=== PATIENT | female | born 1995 | race American Indian/Alaskan Native ===

== ENCOUNTER 2018-01-22 13:52 | Emergency (ER) | payer OTHER ==
[2018-01-22] MEDS ORDERED: TORADOL IM ONE (21:24)
[2018-01-22] MEDS ORDERED: FLEXERIL PO ONE (21:25)
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
[2018-01-22 21:45] VITALS: BP 141/94
== END 2018-01-22 22:04 | disposition home or self-care (01) ==
LOC: EDSEX → ED 13:52
DX: S16.1XXA Strain of muscle, fascia and tendon at neck level, initial encounter (principal); S39.012A Strain of muscle, fascia and tendon of lower back, initial encounter; M62.830 Muscle spasm of back; V49.49XA Driver injured in collision with other motor vehicles in traffic accident, initial encounter; Y93.89 Activity, other specified; Y92.89 Other specified places as the place of occurrence of the external cause; Y99.8 Other external cause status
CPT/HCPCS: 96372; 99282; J1885

== ENCOUNTER 2019-06-15 13:13 | Emergency (ER) | payer OTHER ==
[2019-06-15 13:26] VITALS: BP 122/76
--- NOTE | 2019-06-15 13:28 | Emergency Department Report ---
Chief Complaint: Skin/Abscess/Foreign Body Stated Complaint: BUMP ON LIP Time Seen by Provider: 06/15/19 13:27 - HPI History of Present Illness: SORE LEFT LOWER LIP ABC INTACT NO HX HSV NON ILL NON TOXIC NO FEVER AMBULATORY NO LIFE THREAT MSE TO PCP - Exam Vital Signs: Vital Signs 06/15/19 13:23 Temperature 98.6 F Pulse Rate 79 Respiratory 15 Rate Blood Pressure 122/76 O2 Sat by Pulse 99 Oximetry MSE screening note: Focused history and physical exam performed. Due to findings the following was ordered: ED Disposition for MSE Condition: Stable
== END 2019-06-15 13:30 | disposition left against medical advice (07) ==
LOC: ED 13:13
DX: K13.0 Diseases of lips (principal)
CPT/HCPCS: 99281

== ENCOUNTER 2019-08-05 10:57 | Emergency (ER) | payer OTHER ==
[2019-08-05 11:03] VITALS: BP 122/78
[2019-08-05 12:20] LABS: Basophils % (Auto) 0.6 % (0.0-1.8); Eosinophils # (Auto) 0.1 K/mm3 (0.0-0.4); Eosinophils % (Auto) 1.3 % (0.0-4.3); Hematocrit 46.9 % (30.3-42.9); Hemoglobin 16.1 gm/dl (10.1-14.3); Lymphocytes # (Auto) 1.5 K/mm3 (1.2-5.4); Lymphocytes % (Auto) 34.4 % (13.4-35.0); Mean Corpuscular HGB Conc 34 % (30-34); Mean Corpuscular Volume 86 fl (79-97); Monocytes # (Auto) 0.4 K/mm3 (0.0-0.8); Monocytes % (Auto) 8.1 % (0.0-7.3); Platelet Count 205 K/mm3 (140-440); Red Blood Count 5.44 M/mm3 (3.65-5.03); Red Cell Distribution Width 13.7 % (13.2-15.2)
[2019-08-05 12:39] LABS: Bilirubin,Urine NEG (Negative); Blood,Urine SM (Negative); Color,Urine Yellow (Yellow); Mucus,Urine FEW /HPF; Protein,Urine <15 mg/dL mg/dL (Negative); WBC,Urine < 1.0 /HPF (0.0-6.0)
[2019-08-05 12:41] LABS: HCG Qualitative,Urine Negative (Negative)
[2019-08-05 12:43] LABS: BUN/Creatinine Ratio 18; Blood Urea Nitrogen 14 mg/dL (7-17); Calcium 10.1 mg/dL (8.4-10.2); Hemolysis Index 14
[2019-08-05] MEDS ORDERED: traMADol 50 MG TAB PO ONE (12:46)
--- NOTE | 2019-08-05 13:34 | Emergency Department Report ---
ED Female HPI - General Chief complaint: Vaginal Bleeding Stated complaint: CRAMPING/BLOOD CLOT Time Seen by Provider: 08/05/19 12:26 Source: patient Mode of arrival: Ambulatory Limitations: No Limitations - History of Present Illness Initial comments: This is a 23-year-old healthy female who presents the ED complaining of vaginal bleeding that began on July 26, 2019. Patient states bleeding began light and has gotten moderately heavy since then. Patient states she is soaking the bowel 4-5 pads a day. Patient states that she was seen at her [facility] office on July 25, 2019 and added IUD taken out. Patient states the bleeding started the next day after that. Patient states that prior to IUD removal she had a normal cycle every month patient also states she been having some pelvic cramping with the bleeding. She denies fatigue, fever, headache, blurry vision, syncopal episode MD Complaint: vaginal bleeding -: days(s) (10) Severity scale (0 -10): 7 Quality: cramping, aching Are you Now?: No - Related Data Previous Rx's Medication Instructions Recorded Last Taken Type Cyclobenzaprine [Flexeril 10 MG 10 mg PO TID #15 tablet 01/22/18 Unknown Rx TAB] Naproxen [Naprosyn] 500 mg PO BID #20 tablet 08/05/19 Unknown Rx traMADoL [Ultram 50 MG tab] 50 mg PO Q6HR PRN #20 tablet 08/05/19 Unknown Rx Allergies Allergy/AdvReac Type Severity Reaction Status Date / Time No Known Allergies Allergy Unverified 01/22/18 14:00 ED Review of Systems ROS: Stated complaint: CRAMPING/BLOOD CLOT Other details as noted in HPI Comment: All other systems reviewed and negative ED Past Medical Hx - Past Medical History Previous Medical History?: No - Surgical History Past Surgical History?: Yes Additional Surgical History: x 1 - Social History Smoking Status: Never Smoker Substance Use Type: None - Medications Home Medications: Home Medications Medication Instructions Recorded Confirmed Last Taken Type Cyclobenzaprine [Flexeril 10 MG 10 mg PO TID #15 tablet 01/22/18 Unknown Rx TAB] Naproxen [Naprosyn] 500 mg PO BID #20 tablet 08/05/19 Unknown Rx traMADoL [Ultram 50 MG tab] 50 mg PO Q6HR PRN #20 tablet 08/05/19 Unknown Rx ED Physical Exam - General Limitations: No Limitations General appearance: alert, in no apparent distress - Head Head exam: Present: atraumatic, normocephalic - Eye Eye exam: Present: normal appearance - ENT ENT exam: Present: mucous membranes moist - Neck Neck exam: Present: normal inspection - Respiratory Respiratory exam: Present: normal lung sounds bilaterally. Absent: respiratory distress - Cardiovascular Cardiovascular Exam: Present: regular rate, normal rhythm. Absent: systolic murmur, diastolic murmur, rubs, gallop - GI/Abdominal GI/Abdominal exam: Present: soft, normal bowel sounds - Extremities Exam Extremities exam: Present: normal inspection - Back Exam Back exam: Present: normal inspection - Neurological Exam Neurological exam: Present: alert, oriented X3 - Psychiatric Psychiatric exam: Present: normal affect, normal mood - Skin Skin exam: Present: warm, dry, intact, normal color. Absent: rash ED Course Vital Signs 08/05/19 08/05/19 11:01 12:59 Respiratory 18 18 Rate Blood Pressure 122/78 ED Medical Decision Making - Lab Data Result diagrams: 08/05/19 11:47 08/05/19 11:47 Laboratory Last Values WBC 4.4 K/mm3 (4.5-11.0) L 08/05/19 11:47 RBC 5.44 M/mm3 (3.65-5.03) H 08/05/19 11:47 Hgb 16.1 gm/dl (10.1-14.3) H 08/05/19 11:47 Hct 46.9 % (30.3-42.9) H 08/05/19 11:47 MCV 86 fl (79-97) 08/05/19 11:47 MCH 30 pg (28-32) 08/05/19 11:47 MCHC 34 % (30-34) 08/05/19 11:47 RDW 13.7 % (13.2-15.2) 08/05/19 11:47 Plt Count 205 K/mm3 (140-440) 08/05/19 11:47 Lymph % (Auto) 34.4 % (13.4-35.0) 08/05/19 11:47 [place] % (Auto) 8.1 % (0.0-7.3) H 08/05/19 11:47 Eos % (Auto) 1.3 % (0.0-4.3) 08/05/19 11:47 Baso % (Auto) 0.6 % (0.0-1.8) 08/05/19 11:47 Lymph # 1.5 K/mm3 (1.2-5.4) 08/05/19 11:47 [place] # 0.4 K/mm3 (0.0-0.8) 08/05/19 11:47 Eos # 0.1 K/mm3 (0.0-0.4) 08/05/19 11:47 Baso # 0.0 K/mm3 (0.0-0.1) 08/05/19 11:47 Seg Neutrophils % 55.6 % (40.0-70.0) 08/05/19 11:47 Seg Neutrophils # 2.4 K/mm3 (1.8-7.7) 08/05/19 11:47 Sodium 139 mmol/L (137-145) 08/05/19 11:47 Potassium 4.3 mmol/L (3.6-5.0) 08/05/19 11:47 Chloride 101.5 mmol/L (98-107) 08/05/19 11:47 Carbon Dioxide 23 mmol/L (22-30) 08/05/19 11:47 Anion Gap 19 mmol/L 08/05/19 11:47 BUN 14 mg/dL (7-17) 08/05/19 11:47 Creatinine 0.8 mg/dL (0.7-1.2) 08/05/19 11:47 Estimated GFR > 60 ml/min 08/05/19 11:47 BUN/Creatinine Ratio 18 % 08/05/19 11:47 Glucose 102 mg/dL (65-100) H 08/05/19 11:47 Calcium 10.1 mg/dL (8.4-10.2) 08/05/19 11:47 Urine Color Yellow (Yellow) 08/05/19 12:16 Urine Turbidity Clear (Clear) 08/05/19 12:16 Urine pH 6.0 (5.0-7.0) 08/05/19 12:16 Ur Specific [place] 1.018 (1.003-1.030) 08/05/19 12:16 Urine Protein <15 mg/dl mg/dL (Negative) 08/05/19 12:16 Urine Glucose (UA) Neg mg/dL (Negative) 08/05/19 12:16 Urine Ketones Neg mg/dL (Negative) 08/05/19 12:16 Urine Blood Sm (Negative) 08/05/19 12:16 Urine Nitrite Neg (Negative) 08/05/19 12:16 Urine Bilirubin Neg (Negative) 08/05/19 12:16 Urine Urobilinogen 2.0 mg/dL (<2.0) 08/05/19 12:16 Ur Leukocyte Esterase Neg (Negative) 08/05/19 12:16 Urine WBC (Auto) < 1.0 /HPF (0.0-6.0) 08/05/19 12:16 Urine RBC (Auto) 1.0 /HPF (0.0-6.0) 08/05/19 12:16 U Epithel Cells (Auto) 3.0 /HPF (0-13.0) 08/05/19 12:16 Urine Mucus Few /HPF 08/05/19 12:16 Urine HCG, Qual Negative (Negative) 08/05/19 12:16 - Medical Decision Making 23-year-old female presents to ED with menorrhagia secondary to IUD removal ED course: Pt received ultra sound, CBC, urinalysis, test ordered All labs within normal limits, test negative Discussed with patient to follow-up with the [facility] in 2 to 3 days. Discussed with patient that vaginal bleeding with IUD removal is usually common. H&H mildly elevated and not depleted. I discussed all findings with patient. Vital signs normalized patient is in no acute distress. I discussed with the patient if follow-up with her [facility]. I discussed all labs and ultrasound findings with the patient. I discussed with the patient that he if bleeding worsens or new symptoms develop to return to ED immediately Critical care attestation.: If time is entered above; I have spent that time in minutes in the direct care of this critically ill patient, excluding procedure time. ED Disposition Clinical Impression: Menorrhagia, Vaginal bleeding between periods Disposition: - TO HOME OR SELFCARE Is pt being admited?: No Does the pt Need Aspirin: No Condition: Stable Instructions: Menorrhagia (ED) Additional Instructions: Make sure to follow up with the primary care physician as discussed. Take all your medications as you've been prescribed. If you have any worsening symptoms or develop new symptoms please return to ED immediately. Prescriptions: Naproxen [Naprosyn] 500 mg PO BID #20 tablet traMADoL [Ultram 50 MG tab] 50 mg PO Q6HR PRN #20 tablet PRN Reason: Pain Referrals: PRIMARY CARE,MD [Primary Care Provider] - 3-5 Days [facility] [Provider Group] - 3-5 Days [facility] [Outside] - 3-5 Days Forms: Accompanied Note, Work/School Release Form(ED) Time of Disposition: 13:44
== END 2019-08-05 13:55 | disposition home or self-care (01) ==
LOC: ED 10:57
DX: N92.0 Excessive and frequent menstruation with regular cycle (principal); N93.9 Abnormal uterine and vaginal bleeding, unspecified; Z79.899 Other long term (current) drug therapy; Z98.890 Other specified postprocedural states
CPT/HCPCS: 36415; 80048; 81001; 81025; 85025

== ENCOUNTER 2019-09-30 10:38 | Emergency (ER) | payer OTHER ==
[2019-09-30 11:14] LABS: Bacteria,Urine 1+ /HPF (Negative); Bilirubin,Urine NEG (Negative); Blood,Urine SM (Negative); Color,Urine Yellow (Yellow); HCG Qualitative,Urine Negative (Negative); Mucus,Urine 1+ /HPF; Protein,Urine <15 mg/dL mg/dL (Negative); Urobilinogen,Urine < 2.0 mg/dL (<2.0)
[2019-09-30] MEDS ORDERED: SODIUM CHLORIDE 0.9% 1000 ML 1,000 ML IV ONE (11:36)
--- NOTE | 2019-09-30 11:37 | Emergency Department Report ---
ED Abdominal Pain HPI - General Chief Complaint: Abdominal Pain Stated Complaint: STOMACH PAIN, VOMITTING Source: patient Mode of arrival: Ambulatory Limitations: No Limitations - History of Present Illness Initial Comments: 24-year-old -[place] female reports that she has had episodes of nausea after eating food a week ago. Patient reports now she has been having abdominal pain that is gotten worse. Patient states that she went to urgent care today and was told to follow-up in the ER for abdominal pain. Patient reports her last menstrual period was 09/10/2019. Patient denies any hematuria, hematochezia,or hematemesis. Patient denies any diarrhea or constipation. Patient denies any dysuria or vaginal discharge. Patient states that the pain is at the epigastric area and the left side. Patient denies any trauma no shortness of breath or chest pain. Patient denies any fever or chills. MD Complaint: abdominal pain Onset/Timin -: days(s) (2 days of progressively getting worse), week(s) Location: epigastric Radiation: LUQ Severity scale (0 -10): 7 Quality: cramping Consistency: intermittent Improves With: nothing Worsens With: eating Associated Symptoms: nausea, vomiting. denies: diarrhea, fever, dysuria, hematemesis, hematochezia, hematuria - Related Data LMP Date: 09/10/19 Previous Rx's Medication Instructions Recorded Last Taken Type Cyclobenzaprine [Flexeril 10 MG 10 mg PO TID #15 tablet 01/22/18 Unknown Rx TAB] Naproxen [Naprosyn] 500 mg PO BID #20 tablet 08/05/19 Unknown Rx traMADoL [Ultram 50 MG tab] 50 mg PO Q6HR PRN #20 tablet 08/05/19 Unknown Rx Allergies Allergy/AdvReac Type Severity Reaction Status Date / Time No Known Allergies Allergy Unverified 01/22/18 14:00 ED Review of Systems ROS: Stated complaint: STOMACH PAIN, VOMITTING Other details as noted in HPI Comment: All other systems reviewed and negative ED Past Medical Hx - Past Medical History Previous Medical History?: No - Surgical History Past Surgical History?: Yes Additional Surgical History: x 1 - Social History Smoking Status: Never Smoker Substance Use Type: Alcohol - Medications Home Medications: Home Medications Medication Instructions Recorded Confirmed Last Taken Type Cyclobenzaprine [Flexeril 10 MG 10 mg PO TID #15 tablet 01/22/18 Unknown Rx TAB] Naproxen [Naprosyn] 500 mg PO BID #20 tablet 08/05/19 Unknown Rx traMADoL [Ultram 50 MG tab] 50 mg PO Q6HR PRN #20 tablet 08/05/19 Unknown Rx ED Physical Exam - General Limitations: No Limitations General appearance: alert, in no apparent distress - Head Head exam: Present: atraumatic, normocephalic - Eye Eye exam: Present: normal appearance - ENT ENT exam: Present: mucous membranes moist - Neck Neck exam: Present: normal inspection, full ROM - Respiratory Respiratory exam: Present: normal lung sounds bilaterally - Cardiovascular Cardiovascular Exam: Present: tachycardia - GI/Abdominal GI/Abdominal exam: Present: soft, tenderness (Epigastric), guarding (Epigastric), normal bowel sounds. Absent: distended - Back Exam Back exam: Present: normal inspection - Neurological Exam Neurological exam: Present: alert, oriented X3, normal gait - Psychiatric Psychiatric exam: Present: normal affect, normal mood - Skin Skin exam: Present: warm, dry, intact, normal color. Absent: rash ED Course Vital Signs 09/30/19 10:44 Temperature 98.3 F Pulse Rate 116 H Respiratory 20 Rate Blood Pressure 132/85 O2 Sat by Pulse 99 Oximetry ED Medical Decision Making - Lab Data Result diagrams: 09/30/19 11:24 09/30/19 11:24 - Radiology Data Radiology results: report reviewed Ordering Physician: CLIVE LONGORIA Date of Service: 09/30/19 Procedure(s): CT abdomen pelvis w con Accession Number(s): [id number] cc: CLIVE LONGORIA CT abdomen pelvis w con INDICATION / CLINICAL INFORMATION: MAIN: Epigastric tenderness nausea and vomiting x1wk [id number] 100ml. TECHNIQUE: All CT scans at this location are performed using CT dose reduction for ALARA by means of automated exposure control. COMPARISON: None available. FINDINGS: Lower lungs are clear. ABDOMEN: The gallbladder, liver, spleen, pancreas, kidneys and adrenal glands are normal. No retroperitoneal adenopathy. No small bowel distention. Imaging there are scattered small mesenteric lymph nodes without evidence of mesenteric edema. Pelvis: The appendix is normal. No fluid collections or inflammatory changes are seen in the pelvis. A contraceptive device is in place. No osseous abnormality. IMPRESSION: 1. Mild nonspecific mesenteric adenopathy without other abdominal or pelvic abnormality. Signer Name: Ino Allred MD Signed: 09/30/2019 1:41 PM Workstation Name: [id number] Transcribed By: MARI Dictated By: Ino Allred MD Electronically Authenticated By: Ino Allred MD Signed Date/Time: 09/30/19 1341 DD/ 1339 TD/TT: - Medical Decision Making 24-year-old -[place] female reports that she has had episodes of nausea after eating food a week ago. Patient reports now she has been having abdominal pain that is gotten worse. Patient states that she went to urgent care today and was told to follow-up in the ER for abdominal pain. Patient reports her last menstrual period was 09/10/2019. Patient denies any hematuria, hematochezia,or hematemesis. Patient denies any diarrhea or constipation. Patient denies any dysuria or vaginal discharge. Patient states that the pain is at the epigastric area and the left side. Patient denies any trauma no shortness of breath or chest pain. Patient denies any fever or chills. Review labs which are stable no urinary tract infection no elevated white count. CT shows moderate nonspecific lymphadenopathy. Discussed with Dr. Blanchard he recommends patient to follow-up with [facility]. Critical care attestation.: If time is entered above; I have spent that time in minutes in the direct care of this critically ill patient, excluding procedure time. ED Disposition Clinical Impression: Nonspecific abdominal pain Disposition: DC-01 TO HOME OR SELFCARE Is pt being admited?: No Does the pt Need Aspirin: No Condition: Stable Instructions: Abdominal Pain (ED) Additional Instructions: Labs are negative for any acute findings CT scan shows some lymph nodes that are mildly enlarged. I highly recommend for you to follow-up with a dealer card room I have listed 1 below for your convenience. You can take Tylenol or ibuprofen as needed for pain management. Referrals: PRIMARY CARE, [Primary Care Provider] - 3-5 Days [facility] [Provider Group] - 3-5 Days Forms: Work/School Release Form(ED)
[2019-09-30 11:46] LABS: Basophils % (Auto) 0.3 % (0.0-1.8); Eosinophils % (Auto) 0.2 % (0.0-4.3); Hematocrit 43.8 % (30.3-42.9); Hemoglobin 14.9 gm/dl (10.1-14.3); Lymphocytes # (Auto) 1.2 K/mm3 (1.2-5.4); Lymphocytes % (Auto) 19.2 % (13.4-35.0); Mean Corpuscular HGB Conc 34 % (30-34); Mean Corpuscular Volume 88 fl (79-97); Monocytes # (Auto) 0.3 K/mm3 (0.0-0.8); Monocytes % (Auto) 4.5 % (0.0-7.3); Platelet Count 189 K/mm3 (140-440); Red Cell Distribution Width 13.6 % (13.2-15.2)
[2019-09-30 12:02] LABS: Alanine Aminotransferase 15 units/L (7-56); Albumin 4.6 g/dL (3.9-5); BUN/Creatinine Ratio 23; Blood Urea Nitrogen 16 mg/dL (7-17); Calcium 9.6 mg/dL (8.4-10.2); Hemolysis Index 4
--- NOTE | 2019-09-30 13:45 | Cat Scan Report ---
CT abdomen pelvis w con INDICATION / CLINICAL INFORMATION: MAIN: Epigastric tenderness nausea and vomiting x1wk [id number] 100ml. TECHNIQUE: All CT scans at this location are performed using CT dose reduction for ALARA by means of automated e xposure control. COMPARISON: None available. FINDINGS: Lower lungs are clear. ABDOMEN: The gallbladder, liver, spleen, pancreas, kidneys and adrenal glands are normal. No retroperitoneal adenopathy. No small bowel distention. Imaging there are scattered small mesenteric lymph nodes without evidence of mesenteric edema. Pelvis: The appendix is normal. No fluid collections or inflammatory changes are seen in the pelvis. A contraceptive device is in place. No osseous abnormality. IMPRESSION: 1. Mild nonspecific mesenteric adenopathy without other abdominal or pelvic abnormality. Signer Name: Ino Allred MD Signed: 09/30/2019 1:41 PM Workstation Name: [id number]
[2019-09-30 14:36] VITALS: BP 130/86
== END 2019-09-30 14:46 | disposition home or self-care (01) ==
LOC: ED 10:38
DX: R10.13 Epigastric pain (principal); R11.2 Nausea with vomiting, unspecified; Z98.890 Other specified postprocedural states; Z79.899 Other long term (current) drug therapy
CPT/HCPCS: 36415; 74177; 80053; 81001; 81025; 82150; 83690; 85025; 96360; 99284; J7030; Q9967

== ENCOUNTER 2020-01-28 14:53 | Emergency (ER) | payer OTHER ==
--- NOTE | 2020-01-28 19:25 | Emergency Department Report ---
Blank Doc - Documentation Documentation: 24-year-old female that presents with bdoy aches, sore throat, cough, and chest pains. This initial assessment/diagnostic orders/clinical plan/treatment(s) is/are subject to change based on patient's health status, clinical progression and re- assessment by fellow clinical providers in the ED. Further treatment and workup at subsequent clinical providers discretion. Patient/guardians urged not to elope from the ED as their condition may be serious if not clinically assessed and managed. Initial orders include: 1- Patient sent to [facility] for further evaluation and treatment 2- CXR 3- EKG
[2020-01-28 19:28] VITALS: BP 127/82
--- NOTE | 2020-01-28 20:20 | XRay Report ---
CHEST 2 VIEWS INDICATION / CLINICAL INFORMATION: cough. COMPARISON: None available. FINDINGS: SUPPORT DEVICES: None. HEART / MEDIASTINUM: No significant abnormality. LUNGS / PLEURA: No significant pulmonary or pleural abnormality. No pneumothorax. ADDITIONAL FINDINGS: No significant additional findings. IMPRESSION: 1. No acute findings. Signer Name: Dutch Rice MD Signed: 01/28/2020 8:15 PM Workstation Name: [id number]
--- NOTE | 2020-01-28 21:35 | Emergency Department Report ---
ED General Adult HPI - General Chief complaint: Chest Pain Stated complaint: CP/SORE THROAT/STUFFY NOSE PUI?: No Time Seen by Provider: 01/28/20 19:24 Source: patient Mode of arrival: Ambulatory Limitations: No Limitations - History of Present Illness Initial comments: This is a healthy 24-year-old female without significant past medical history who presents with several days of chest pain cough shortness of breath body aches sore throat nasal congestion. She has subjective fever with chills. She suspects that she contacted possible COVID-19 while travel on vacation to [facility]. She has been sick for at least 6 days. She requires documentation to be excused from work. Nondescript chest fullness. Mild shortness of breath. -: Gradual, days(s) (6 days) Location: chest Quality: dull Consistency: constant Improves with: none Worsens with: none Associated Symptoms: cough, malaise, shortness of breath, other (Nasal congestion sore throat) Treatments Prior to Arrival: none - Related Data Previous Rx's Medication Instructions Recorded Last Taken Type Cyclobenzaprine [Flexeril 10 MG 10 mg PO TID #15 tablet 01/22/18 Unknown Rx TAB] Naproxen [Naprosyn] 500 mg PO BID #20 tablet 08/05/19 Unknown Rx traMADoL [Ultram 50 MG tab] 50 mg PO Q6HR PRN #20 tablet 08/05/19 Unknown Rx Allergies Allergy/AdvReac Type Severity Reaction Status Date / Time No Known Allergies Allergy Unverified 01/22/18 14:00 ED Review of Systems ROS: Stated complaint: CP/SORE THROAT/STUFFY NOSE Other details as noted in HPI Comment: All other systems reviewed and negative Constitutional: chills, fever, malaise ENT: throat pain, congestion Respiratory: cough, shortness of breath Cardiovascular: chest pain Musculoskeletal: myalgia ED Past Medical Hx - Past Medical History Previous Medical History?: No - Surgical History Past Surgical History?: Yes Additional Surgical History: x 1 - Social History Smoking Status: Never Smoker Substance Use Type: None - Medications Home Medications: Home Medications Medication Instructions Recorded Confirmed Last Taken Type Cyclobenzaprine [Flexeril 10 MG 10 mg PO TID #15 tablet 01/22/18 Unknown Rx TAB] Naproxen [Naprosyn] 500 mg PO BID #20 tablet 08/05/19 Unknown Rx traMADoL [Ultram 50 MG tab] 50 mg PO Q6HR PRN #20 tablet 08/05/19 Unknown Rx ED Physical Exam - General Limitations: No Limitations General appearance: alert, in no apparent distress - Head Head exam: Present: atraumatic, normocephalic - Eye Eye exam: Present: normal appearance - ENT ENT exam: Present: mucous membranes moist - Neck Neck exam: Present: normal inspection, full ROM - Respiratory Respiratory exam: Present: normal lung sounds bilaterally. Absent: respiratory distress, wheezes, rales, rhonchi - Cardiovascular Cardiovascular Exam: Present: regular rate, normal rhythm, normal heart sounds. Absent: systolic murmur, diastolic murmur, rubs, gallop - GI/Abdominal GI/Abdominal exam: Present: soft, normal bowel sounds. Absent: distended, tenderness, guarding, rebound - Extremities Exam Extremities exam: Present: normal inspection - Neurological Exam Neurological exam: Present: alert, oriented X3 - Psychiatric Psychiatric exam: Present: normal affect, normal mood - Skin Skin exam: Present: warm, dry, intact, normal color. Absent: rash ED Course Vital Signs 01/28/20 19:25 Temperature 97.9 F Pulse Rate 100 H Respiratory 18 Rate Blood Pressure 127/82 O2 Sat by Pulse 100 Oximetry ED Medical Decision Making - EKG Data -: EKG Interpreted by De EKG shows normal: sinus rhythm, axis, intervals, QRS complexes, ST-T waves Rate: normal - EKG Data Interpretation: normal EKG 01/28/20 21:33 EKG obtained by tx EKG obtained 1528 Insert EKG - Radiology Data Radiology results: report reviewed Chest radiograph: No acute findings - Medical Decision Making With constellation of symptoms, I suspect COVID 19 infection. EKG checks x-ray unremarkable. Patient understands that she should self quarantine or obtain negative COVID-19 testing. Critical care attestation.: If time is entered above; I have spent that time in minutes in the direct care of this critically ill patient, excluding procedure time. ED Disposition Clinical Impression: Suspected 2019 novel coronavirus infection Disposition: DC-01 TO HOME OR SELFCARE Is pt being admited?: No Does the pt Need Aspirin: No Condition: Stable Instructions: COVID-19 Forms: Work/School Release Form(ED)
== END 2020-01-28 21:45 | disposition home or self-care (01) ==
LOC: ED 14:53
DX: R07.89 Other chest pain (principal); Z20.828 Contact with and (suspected) exposure to other viral communicable diseases; R05 Cough; R06.02 Shortness of breath; J02.9 Acute pharyngitis, unspecified; R50.9 Fever, unspecified; R09.81 Nasal congestion; R53.81 Other malaise; Z98.890 Other specified postprocedural states; Z79.899 Other long term (current) drug therapy
CPT/HCPCS: 71046; 93005

== ENCOUNTER 2020-04-17 14:20 | Emergency (ER) | payer OTHER ==
[2020-04-17 15:30] LABS: Basophils % (Auto) 0.1 % (0.0-1.8); Eosinophils % (Auto) 0.7 % (0.0-4.3); Hematocrit 42.4 % (30.3-42.9); Hemoglobin 14.8 gm/dl (10.1-14.3); Lymphocytes # (Auto) 1.6 K/mm3 (1.2-5.4); Lymphocytes % (Auto) 27.6 % (13.4-35.0); Mean Corpuscular HGB Conc 35 % (30-34); Mean Corpuscular Volume 85 fl (79-97); Monocytes # (Auto) 0.4 K/mm3 (0.0-0.8); Platelet Count 242 K/mm3 (140-440); Red Blood Count 4.98 M/mm3 (3.65-5.03); Red Cell Distribution Width 13.2 % (13.2-15.2)
[2020-04-17 16:34] VITALS: BP 139/76
--- NOTE | 2020-04-17 16:36 | Emergency Department Report ---
Blank Doc - Documentation Documentation: 24-year-old female possibly 6 weeks presents emerged department compl aining of vaginal bleeding for the last 2 days started spotting was very lightly on yesterday and and progressively worsened today. She is under the care of [facility] and presents to the ED to determine her current status. Plan ultrasound This initial assessment/diagnostic orders/clinical plan/treatment(s) is/are subject to change based on patients health status, clinical progression and re- assessment by fellow clinical providers in the ED. Further treatment and workup at subsequent clinical providers discretion. Patient/guardian urged not to elope from the ED as their condition may be serious if not clinically assessed and managed. Initial orders include:
[2020-04-17] MEDS ORDERED: ACETAMINOPHEN 500 MG TAB PO ONE (20:19)
[2020-04-17] MEDS ORDERED: METOCLOPRAMIDE 10 MG TAB PO ONE (20:19)
[2020-04-17 21:08] LABS: Bilirubin,Urine NEG (Negative); Blood,Urine LG (Negative); Color,Urine Yellow (Yellow); Mucus,Urine 1+ /HPF; Urobilinogen,Urine < 2.0 mg/dL (<2.0)
[2020-04-17] MEDS ORDERED: cephALEXin 500 MG CAP PO ONE (21:12)
[2020-04-17 21:17] LABS: Alanine Aminotransferase 15 units/L (7-56); Albumin 4.3 g/dL (3.9-5); Blood Urea Nitrogen 10 mg/dL (7-17); Calcium 9.6 mg/dL (8.4-10.2); Hemolysis Index 21
[2020-04-17 21:20] LABS: BUN/Creatinine Ratio 14
--- NOTE | 2020-04-17 22:32 | Ultrasound Report ---
ULTRASOUND OBSTETRIC INDICATION / CLINICAL INFORMATION: vagina bleeding and . Clinical Gestational Age (GA): 6.5 weeks.days TECHNIQUE: Transabdominal. COMPARISON: None available. FINDINGS: GESTATIONAL SAC: Well-defined oval shape and intrauterine in location. The gestational sac measures 3 .8 mm, corresponding to a gestational age of 5 weeks, 1 day. YOLK SAC: Not visualized. EMBRYO/FETUS: Not visualized. UTERUS: Uterus measures 9.1 x 4.0 x 5.1 cm and is normal in echogenicity. ADNEXA: The right ovary measures 2.8 x 2.4 x 2.7 cm and is normal in echogenicity with normal Doppler flow. The left ovary is not visualized. FREE FLUID: None. ADDITIONAL FINDINGS: None. IMPRESSION: 1. Intrauterine gestational sac is identified, corresponding to a gestational age of 5 weeks, 1 day. No pole was seen, which can be seen with early normal gestation. Continued obstetric follow-up is recommended. Signer Name: Prosper Mcmanus MD Signed: 04/17/2020 10:27 PM Workstation Name: [id number]
--- NOTE | 2020-04-17 23:09 | Emergency Department Report ---
ED Female HPI - General Chief complaint: Vaginal Bleeding Stated complaint: , ABD PAIN Time Seen by Provider: 04/17/20 14:59 Source: patient Mode of arrival: Ambulatory Limitations: No Limitations - History of Present Illness Initial comments: Patient is a A0 24-year-old -[place]ian female who is approximately 6 weeks gestation who presents to the ED with complaint of acute onset persistent suprapubic pain that radiates to the lower back and vaginal bleeding for the last 2 days worse in the last 12 hours. Patient states that the vaginal bleeding was initially mild and spotting but progressively became heavier especially in the last 12 hours. Patient denies fever, chills, nausea and vomiting, diarrhea, dysuria, vaginal discharge, dizziness, syncope, chest pain or shortness of breath, headache, cough, sore throat, traumatic injury or heavy lifting. MD Complaint: vaginal bleeding, pelvic pain (suprapubic) -: Sudden, days(s) (2) Location: suprapubic, other (vagina) Radiation: non-radiating Severity: moderate Severity scale (0 -10): 5 Quality: cramping, sharp Consistency: constant Improves with: none Worsens with: none Are you Now?: Yes (6 weeks gestation) Associated Symptoms: denies other symptoms, vaginal bleeding, abdominal pain (suprapubic), loss of appetite. denies: vaginal discharge, nausea/vomiting, fever/chills, headaches, dysuria, hematuria, rash, shortness of breath, syncope, weakness - Related Data Sexually active: Yes : 2 Para: 1 A: 0 Previous Rx's Medication Instructions Recorded Last Taken Type Cyclobenzaprine [Flexeril 10 MG 10 mg PO TID #15 tablet 01/22/18 Unknown Rx TAB] Naproxen [Naprosyn] 500 mg PO BID #20 tablet 08/05/19 Unknown Rx traMADoL [Ultram 50 MG tab] 50 mg PO Q6HR PRN #20 tablet 08/05/19 Unknown Rx Acetaminophen [Tylenol] 500 mg PO Q6HR PRN #30 tablet 04/17/20 Unknown Rx Promethazine [Phenergan] 25 mg PO Q6HR PRN #30 tab 04/17/20 Unknown Rx cephALEXin [Keflex] 500 mg PO Q8HR #30 cap 04/17/20 Unknown Rx Allergies Allergy/AdvReac Type Severity Reaction Status Date / Time No Known Allergies Allergy Unverified 01/22/18 14:00 ED Review of Systems ROS: Stated complaint: , ABD PAIN Other details as noted in HPI Constitutional: denies: chills, fever Eyes: denies: eye pain, eye discharge, vision change ENT: denies: ear pain, throat pain Respiratory: denies: cough, shortness of breath, wheezing Cardiovascular: denies: chest pain, palpitations Endocrine: no symptoms reported Gastrointestinal: abdominal pain, nausea. denies: diarrhea Genitourinary: frequency, abnormal menses (vaginal bleeding). denies: urgency, dysuria, discharge Musculoskeletal: denies: back pain, joint swelling, arthralgia Skin: denies: rash, lesions Neurological: denies: headache, weakness, paresthesias Psychiatric: denies: anxiety, depression Hematological/Lymphatic: denies: easy bleeding, easy bruising ED Past Medical Hx - Past Medical History Previous Medical History?: No - Surgical History Past Surgical History?: Yes Additional Surgical History: x 1 - Social History Smoking Status: Never Smoker Substance Use Type: None - Medications Home Medications: Home Medications Medication Instructions Recorded Confirmed Last Taken Type Cyclobenzaprine [Flexeril 10 MG 10 mg PO TID #15 tablet 01/22/18 Unknown Rx TAB] Naproxen [Naprosyn] 500 mg PO BID #20 tablet 08/05/19 Unknown Rx traMADoL [Ultram 50 MG tab] 50 mg PO Q6HR PRN #20 tablet 08/05/19 Unknown Rx Acetaminophen [Tylenol] 500 mg PO Q6HR PRN #30 tablet 04/17/20 Unknown Rx Promethazine [Phenergan] 25 mg PO Q6HR PRN #30 tab 04/17/20 Unknown Rx cephALEXin [Keflex] 500 mg PO Q8HR #30 cap 04/17/20 Unknown Rx ED Physical Exam - General Limitations: No Limitations General appearance: alert, in no apparent distress - Head Head exam: Present: atraumatic, normocephalic, normal inspection - Eye Eye exam: Present: normal appearance, PERRL, EOMI Pupils: Present: normal accommodation - ENT ENT exam: Present: normal exam, normal orophraynx, mucous membranes moist, TM's normal bilaterally, normal external ear exam - Neck Neck exam: Present: normal inspection, full ROM - Respiratory Respiratory exam: Present: normal lung sounds bilaterally. Absent: respiratory distress, wheezes, rales, rhonchi, chest wall tenderness, accessory muscle use - Cardiovascular Cardiovascular Exam: Present: regular rate, normal rhythm, normal heart sounds. Absent: systolic murmur, diastolic murmur, rubs, gallop - GI/Abdominal GI/Abdominal exam: Present: soft, tenderness (Palpable mild suprapubic tenderness), normal bowel sounds. Absent: guarding, rebound, hyperactive bowel sounds, hypoactive bowel sounds, organomegaly, mass, bruit, pulsatile mass - Bi-manual exam: Present: other (Pelvic exam deferred) - Extremities Exam Extremities exam: Present: normal inspection, full ROM, normal capillary refill - Back Exam Back exam: Present: normal inspection, full ROM. Absent: tenderness, CVA tenderness (R), CVA tenderness (L), muscle spasm, paraspinal tenderness, vertebral tenderness - Neurological Exam Neurological exam: Present: alert, oriented X3, CN II-XII intact - Psychiatric Psychiatric exam: Present: normal affect, normal mood - Skin Skin exam: Present: warm, dry, intact, normal color. Absent: rash ED Course Vital Signs 04/17/20 16:30 Temperature 98.2 F Pulse Rate 97 H Respiratory 18 Rate Blood Pressure 139/76 O2 Sat by Pulse 96 Oximetry ED Medical Decision Making - Lab Data Result diagrams: 04/17/20 15:16 04/17/20 20:11 - Radiology Data Radiology results: report reviewed, image reviewed Findings [address] [address] Ultrasound Report Signed Patient: LEE HANNA MR#: [id number] : 1995 Acct:[id number] Age/Sex: 24 / F ADM Date: 04/17/20 Loc: ED Attending Dr: Ordering Physician: CLIVE WU Date of Service: 04/17/20 Procedure(s): US OB <= 14 weeks fetus Accession Number(s): [id number] cc: CLIVE WU ULTRASOUND OBSTETRIC INDICATION / CLINICAL INFORMATION: vagina bleeding and . Clinical Gestational Age (GA): 6.5 weeks.days TECHNIQUE: Transabdominal. COMPARISON: None available. FINDINGS: GESTATIONAL SAC: Well-defined oval shape and intrauterine in location. The gestational sac measures 3.8 mm, corresponding to a gestational age of 5 weeks, 1 day. YOLK SAC: Not visualized. EMBRYO/FETUS: Not visualized. UTERUS: Uterus measures 9.1 x 4.0 x 5.1 cm and is normal in echogenicity. ADNEXA: The right ovary measures 2.8 x 2.4 x 2.7 cm and is normal in echogenicity with normal Doppler flow. The left ovary is not visualized. FREE FLUID: None. ADDITIONAL FINDINGS: None. IMPRESSION: 1. Intrauterine gestational sac is identified, corresponding to a gestational age of 5 weeks, 1 day. No pole was seen, which can be seen with early normal gestation. Continued obstetric follow-up is recommended. Signer Name: Shadia Mcmanus MD Signed: 04/17/2020 10:27 PM Workstation Name: [id number] Transcribed By: Dictated By: SHADIA MCMANUS Electronically Authenticated By: SHADIA MCMANUS Signed Date/Time: 04/17/202226 DD/ 23 TD/TT: - Medical Decision Making This is a A0 24-year-old -[place]ian female who is approximately 6 weeks gestation who presents to the ED with complaint of acute onset persistent suprapubic pain that radiates to the lower back and vaginal bleeding for the last 2 days worse in the last 12 hours. Patient states that the vaginal bleeding was initially mild and spotting but progressively became heavier especially in the last 12 hours. In the ED, patient is alert and oriented x3 and is not in distress. Patient was treated for pain in the ED and also treated with antiemetics. Lab test results were reviewed and showed hCG quant of 378.1 and urinalysis showed significant urinary tract infection. Transvaginal ultrasound showed intrauterine gestational sac is identified, corresponding to a gestational age of 5 weeks, 1 day. No pole was seen, which can be seen with early normal gestation. Continued obstetric follow-up is recommended. On reevaluation, patient's pain is well controlled medications. Patient will discharge home on antibiotics and advised to follow-up with her [facility] physician in 2 to 3 days for reevaluation. Patient was also advised return to the ED immediately if symptoms get worse. Patient was advised to return to the ED for serial hCG quant studies repeat to ascertain the viability of the . - Differential Diagnosis Threatened miscarriage; UTI; subchorionic bleed; ovarian cyst; Critical care attestation.: If time is entered above; I have spent that time in minutes in the direct care of this critically ill patient, excluding procedure time. ED Disposition Clinical Impression: Threatened miscarriage, Abdominal pain during in first trimester, Acute urinary tract infection Disposition: TO HOME OR SELFCARE Is pt being admited?: No Does the pt Need Aspirin: No Condition: Stable Instructions: Threatened Miscarriage, [id number], Abdominal Pain, Adult, [id number], Urinary Tract Infection, Adult, [id number], Vaginal Bleeding During , First Trimester, [id number] Additional Instructions: Lab test results were reviewed and showed no acute abnormalities. Transvaginal ultrasound showed single intrauterine corresponding to 5 weeks and 1 day but there is no pole likely due to early as characterized by the hCG quant of 378.1. Therefore maintain a complete pelvic rest, take antibiotic for UTI and Tylenol as needed for pain. Return to the ED or or to your [facility] physician within 48 hours for serial hCG quant repeat test to ascertain the viability of the . Otherwise return to the ED immediately if symptoms get worse. Prescriptions: Acetaminophen [Tylenol] 500 mg PO Q6HR PRN #30 tablet PRN Reason: Pain , Severe (7-10) cephALEXin [Keflex] 500 mg PO Q8HR #30 cap Promethazine [Phenergan] 25 mg PO Q6HR PRN #30 tab PRN Reason: Nausea Referrals: QUINCY GREENE MD [Staff Physician] - 3-5 Days Time of Disposition: 23:13 Print Language: ANGOLAN
== END 2020-04-17 23:44 | disposition home or self-care (01) ==
LOC: ED 14:20
DX: O20.0 Threatened abortion (principal); O23.41 Unspecified infection of urinary tract in pregnancy, first trimester; O26.891 Other specified pregnancy related conditions, first trimester; R10.2 Pelvic and perineal pain; Z3A.01 Less than 8 weeks gestation of pregnancy; Z98.890 Other specified postprocedural states; Z79.899 Other long term (current) drug therapy
CPT/HCPCS: 36415; 76801; 80053; 81001; 84702; 85025; 86900; 86901; 87086

== ENCOUNTER 2020-06-23 17:25 | Emergency (ER) | payer OTHER ==
[2020-06-23 17:36] VITALS: BP 149/88
--- NOTE | 2020-06-23 19:59 | Emergency Department Report ---
ED Dizziness HPI - General Chief Complaint: Nausea/Vomiting/Diarrhea Stated Complaint: PASS OUT/LIGHT HEADED Time Seen by Provider: 06/23/20 19:17 Source: patient Mode of arrival: Ambulatory Limitations: No Limitations - History of Present Illness Initial Comments: This is a 24-year-old female nontoxic, well nourished in appearance, no acute signs of distress presents to the ED with c/o of dizziness. Patient stated that she has vaginal bleeding x 3 days and when she went to work today started to have nausea and dizziness with feeling that she may pass out. Patient stated since then she has been drinking a lot of water and feels much better with some lightheadness now. Patient denies syncope. Patient denies any headache or head trauma. Patient denies any numbness, tingling, headache, stiff neck, chest pain, shortness of breathe, numbness or tingling. Denies any visual changes or blurry vision. Denies any drug allergies. MD Complaint: lightheadedness -: This morning Timing: gradual onset Description: lightheadedness History of Same: No History of Trauma: No Severity: mild Improves With: remaining still Worsens With: position Associated Symptoms: denies other symptoms. denies: ataxia, chest pain, confusion, cough, diaphoresis, fever/chills, loss of appetite, malaise, rash, seizure, shortness of breath, syncope, weakness - Related Data Previous Rx's Medication Instructions Recorded Last Taken Type Cyclobenzaprine [Flexeril 10 MG 10 mg PO TID #15 tablet 01/22/18 Unknown Rx TAB] Naproxen [Naprosyn] 500 mg PO BID #20 tablet 08/05/19 Unknown Rx traMADoL [Ultram 50 MG tab] 50 mg PO Q6HR PRN #20 tablet 08/05/19 Unknown Rx Acetaminophen [Tylenol] 500 mg PO Q6HR PRN #30 tablet 04/17/20 Unknown Rx Promethazine [Phenergan] 25 mg PO Q6HR PRN #30 tab 04/17/20 Unknown Rx cephALEXin [Keflex] 500 mg PO Q8HR #30 cap 04/17/20 Unknown Rx Allergies Allergy/AdvReac Type Severity Reaction Status Date / Time No Known Allergies Allergy Unverified 01/22/18 14:00 ED Review of Systems ROS: Stated complaint: PASS OUT/LIGHT HEADED Other details as noted in HPI Comment: All other systems reviewed and negative Constitutional: denies: chills, fever Eyes: denies: eye pain, eye discharge, vision change ENT: denies: ear pain, throat pain Respiratory: denies: cough, shortness of breath, wheezing Cardiovascular: denies: chest pain, palpitations Endocrine: no symptoms reported Gastrointestinal: denies: abdominal pain, nausea, diarrhea Genitourinary: denies: urgency, dysuria, discharge Musculoskeletal: denies: back pain, joint swelling, arthralgia Skin: denies: rash, lesions Neurological: denies: headache, weakness, numbness, paresthesias, confusion, abnormal gait Psychiatric: denies: anxiety, depression Hematological/Lymphatic: denies: easy bleeding, easy bruising ED Past Medical Hx - Past Medical History Previous Medical History?: No - Surgical History Past Surgical History?: Yes Additional Surgical History: x 1 - Social History Smoking Status: Never Smoker Substance Use Type: Alcohol - Medications Home Medications: Home Medications Medication Instructions Recorded Confirmed Last Taken Type Cyclobenzaprine [Flexeril 10 MG 10 mg PO TID #15 tablet 01/22/18 Unknown Rx TAB] Naproxen [Naprosyn] 500 mg PO BID #20 tablet 08/05/19 Unknown Rx traMADoL [Ultram 50 MG tab] 50 mg PO Q6HR PRN #20 tablet 08/05/19 Unknown Rx Acetaminophen [Tylenol] 500 mg PO Q6HR PRN #30 tablet 04/17/20 Unknown Rx Promethazine [Phenergan] 25 mg PO Q6HR PRN #30 tab 04/17/20 Unknown Rx cephALEXin [Keflex] 500 mg PO Q8HR #30 cap 04/17/20 Unknown Rx ED Physical Exam - General Limitations: No Limitations General appearance: alert, in no apparent distress - Head Head exam: Present: atraumatic, normocephalic - Eye Eye exam: Present: normal appearance, PERRL, EOMI - Neck Neck exam: Present: normal inspection, full ROM. Absent: tenderness, meningismus, lymphadenopathy - Respiratory Respiratory exam: Present: normal lung sounds bilaterally. Absent: respiratory distress, wheezes, rales, rhonchi, stridor, chest wall tenderness, accessory muscle use, decreased breath sounds, prolonged expiratory - Cardiovascular Cardiovascular Exam: Present: regular rate, normal rhythm, normal heart sounds. Absent: irregular rhythm, systolic murmur, diastolic murmur, rubs, gallop - GI/Abdominal GI/Abdominal exam: Present: soft, normal bowel sounds. Absent: distended, tenderness, guarding, rebound, rigid, diminished bowel sounds - Extremities Exam Extremities exam: Present: normal inspection, full ROM, normal capillary refill - Back Exam Back exam: Present: normal inspection, full ROM. Absent: tenderness, CVA tenderness (R), CVA tenderness (L), muscle spasm, paraspinal tenderness, vertebral tenderness, rash noted - Neurological Exam Neurological exam: Present: alert, oriented X3, normal gait - Expanded Neurological Exam Expanded Patient oriented to: Present: person, place, time Cranial nerves: EOM's Intact: Normal, Facial Sensation: Normal Cerebellar function: Finger to Nose: Normal Upper motor neuron: Pronator Drift: Normal, Sensory Extinction: Normal Motor strength exam: RUE: 5, LUE: 5, RLE: 5, LLE: 5 Best Eye Response (Shay): (4) open spontaneously Best Motor Response (Shay): (6) obeys commands Best Verbal Response (Shay): (5) oriented [place] Total: 15 - Psychiatric Psychiatric exam: Present: normal affect, normal mood - Skin Skin exam: Present: warm, dry, intact, normal color. Absent: rash ED Course Vital Signs 06/23/20 17:35 Temperature 97.9 F Pulse Rate 104 H Respiratory 18 Rate Blood Pressure 149/88 O2 Sat by Pulse 100 Oximetry - Reevaluation(s) Reevaluation #1: 06/23/20 19:58 Patient is speaking in full sentences with no signs of distress noted. ED Medical Decision Making - Lab Data Result diagrams: 06/23/20 19:26 06/23/20 19:26 - Medical Decision Making This is a 24-year-old female that presents with dizziness. Patient is stable and was examined by me. Labs are unremarkable. Urine obtained. She stated af ter drinking a lot of water her symptoms of dizziness has subsided and resolved. Patient is neurologically stable. Patient was instructed to Follow-up with a primary care doctor in 3-5 days or if symptoms worsen and continue return to emergency room as soon as possible. At time of discharge, the patient does not seem toxic or ill in appearance. No acute signs of distress noted. Patient agrees to discharge treatment plan of care. No further questions noted by the patient. Critical care attestation.: If time is entered above; I have spent that time in minutes in the direct care of this critically ill patient, excluding procedure time. ED Disposition Clinical Impression: Dizziness Disposition: DC-01 TO HOME OR SELFCARE Is pt being admited?: No Does the pt Need Aspirin: No Condition: Stable Instructions: Dizziness, [id number] Additional Instructions: Follow-up with a primary care doctor in 3-5 days or if symptoms worsen and continue return to emergency room as soon as possible. Referrals: PRIMARY CAREMD [Primary Care Provider] - 3-5 Days RICK WISEMAN MD [Staff Physician] - 3-5 Days Forms: Work/School Release Form(ED) Time of Disposition: 21:11
[2020-06-23 20:51] LABS: Bacteria,Urine 1+ /HPF (Negative); Bilirubin,Urine NEG (Negative); Blood,Urine NEG (Negative); Color,Urine Yellow (Yellow); Mucus,Urine FEW /HPF; Protein,Urine <15 mg/dL mg/dL (Negative); Urobilinogen,Urine < 2.0 mg/dL (<2.0)
[2020-06-23 20:57] LABS: Basophils % (Auto) 0.2 % (0.0-1.8); Eosinophils % (Auto) 0.3 % (0.0-4.3); Hematocrit 45.2 % (30.3-42.9); Hemoglobin 15.3 gm/dl (10.1-14.3); Lymphocytes # (Auto) 1.8 K/mm3 (1.2-5.4); Lymphocytes % (Auto) 22.6 % (13.4-35.0); Mean Corpuscular HGB Conc 34 % (30-34); Mean Corpuscular Volume 87 fl (79-97); Monocytes # (Auto) 0.4 K/mm3 (0.0-0.8); Monocytes % (Auto) 5.3 % (0.0-7.3); Platelet Count 227 K/mm3 (140-440); Red Blood Count 5.21 M/mm3 (3.65-5.03); Red Cell Distribution Width 13.4 % (13.2-15.2)
[2020-06-23 21:01] LABS: Alanine Aminotransferase 22 units/L (7-56); Albumin 4.9 g/dL (3.9-5); Blood Urea Nitrogen 13 mg/dL (7-17); Calcium 9.9 mg/dL (8.4-10.2); Hemolysis Index 22
[2020-06-23 21:05] LABS: BUN/Creatinine Ratio 22
== END 2020-06-23 21:12 | disposition home or self-care (01) ==
LOC: ED 17:25
DX: R42 Dizziness and giddiness (principal); Z98.890 Other specified postprocedural states; Z79.899 Other long term (current) drug therapy
CPT/HCPCS: 36415; 80053; 81001; 84703; 85025

== ENCOUNTER 2021-01-30 07:35 | Outpatient (CLI) | payer OTHER, MEDICAID ==
[2021-01-30] MEDS ORDERED: dexAMETHasone 4 MG/ML VIAL IM SCH (08:00)
[2021-01-30] MEDS ORDERED: LACTATED RINGERS 1,000 ML IV ONE (08:30)
[2021-01-30] MEDS ORDERED: ACETAMINOPHEN 500 MG TAB PO SCH (08:30)
[2021-01-30 09:13] LABS: Basophils % (Auto) 0.1 % (0.0-1.8); Eosinophils # (Auto) 0.1 K/mm3 (0.0-0.4); Eosinophils % (Auto) 0.8 % (0.0-4.3); Hematocrit 37.6 % (30.3-42.9); Lymphocytes # (Auto) 1.1 K/mm3 (1.2-5.4); Lymphocytes % (Auto) 10.2 % (13.4-35.0); Mean Corpuscular HGB Conc 35 % (30-34); Mean Corpuscular Volume 89 fl (79-97); Monocytes # (Auto) 0.6 K/mm3 (0.0-0.8); Monocytes % (Auto) 5.2 % (0.0-7.3); Platelet Count 193 K/mm3 (140-440); Red Blood Count 4.24 M/mm3 (3.65-5.03); Red Cell Distribution Width 13.5 % (13.2-15.2)
[2021-01-30 09:16] LABS: Bacteria,Urine 2+ /HPF (Negative); Bilirubin,Urine NEG (Negative); Blood,Urine NEG (Negative); Color,Urine Yellow (Yellow); Mucus,Urine 1+ /HPF
[2021-01-30 09:30] LABS: Alanine Aminotransferase 8 units/L (7-56); Albumin 3.6 g/dL (3.9-5); Blood Urea Nitrogen 6 mg/dL (7-17); Calcium 9.3 mg/dL (8.4-10.2); Hemolysis Index 17
[2021-01-30 09:33] LABS: BUN/Creatinine Ratio 12
[2021-01-30] MEDS ORDERED: LIDOCAINE-MPF (1%) 10 MG/1 ML VIAL 5 ML INFILTRATI SCH (10:00)
--- NOTE | 2021-01-30 10:08 | XRay Report ---
CHEST 1 VIEW 01/30/2021 9:00 AM INDICATION / CLINICAL INFORMATION: chest pain. COMPARISON: 01/28/2020. FINDINGS: SUPPORT DEVICES: None. HEART / MEDIASTINUM: No significant abnormality. LUNGS / PLEURA: No significant pulmonary or pleural abnormality. No pneumothorax. ADDITIONAL FINDINGS: No significant additional findings. IMPRESSION: No acute abnormality. Signer Name: Rodney Harris MD Signed: 01/30/2021 10:03 AM Workstation Name: [id number]
--- NOTE | 2021-01-30 11:21 | Electrocardiograph Report ---
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
[2021-01-30 11:43] VITALS: BP 110/63
[2021-01-30] MEDS ORDERED: LACTATED RINGERS 500 ML IV ONE (11:49)
== END 2021-01-30 12:05 | disposition home or self-care (01) ==
LOC: TRG 07:35 → APU 08:06 → TRG 12:05
PROVIDERS: ATTEND Obstetrics & Gynecology
DX: O21.2 Late vomiting of pregnancy (principal); O26.893 Other specified pregnancy related conditions, third trimester; R07.9 Chest pain, unspecified; R10.9 Unspecified abdominal pain; Z3A.23 23 weeks gestation of pregnancy
CPT/HCPCS: 36415; 59025; 71045; 80053; 81001; 84484; 85025; 93005; 96360; 96372; J0696; J1100; J7120

== ENCOUNTER 2021-03-28 10:22 | Outpatient (CLI) | payer OTHER, MEDICAID ==
[2021-03-28 11:15] VITALS: BP 109/52
[2021-03-28] MEDS ORDERED: LACTATED RINGERS 1,000 ML IV ONE (11:16)
[2021-03-28 12:07] LABS: Bacteria,Urine 1+ /HPF (Negative); Bilirubin,Urine NEG (Negative); Blood,Urine NEG (Negative); Color,Urine Yellow (Yellow); Mucus,Urine FEW /HPF; Protein,Urine <15 mg/dL mg/dL (Negative); Urobilinogen,Urine < 2.0 mg/dL (<2.0)
--- NOTE | 2021-03-28 12:26 | Ultrasound Report ---
ULTRASOUND BIOPHYSICAL PROFILE ULTRASOUND OB LIMITED INDICATION: vaginal bleeding and abdominal pain TECHNIQUE: Transabdominal ultrasound imaging. COMPARISON: None FINDINGS: breathing movement = 2 Gross body movement = 2 tone = 2 Qualitative amniotic fluid volume = 2 Total biophysical score = 8/8 Amniotic fluid index is 16.0 cm. Presentation is cephalic. heart rate is 144 beats per minute. The placenta is posterior, grade 1 and free of the cervical os. No evidence for abruption. IMPRESSION: biophysical profile equals 8/8. Signer Name: Alfredo Jackson Jr, MD Signed: 03/28/2021 12:21 PM Workstation Name: [id number]
== END 2021-03-28 12:10 | disposition home or self-care (01) ==
LOC: TRG 10:22 → APU 10:24 → TRG 12:27
PROVIDERS: ATTEND Obstetrics & Gynecology
DX: Z34.93 Encounter for supervision of normal pregnancy, unspecified, third trimester (principal); Z3A.31 31 weeks gestation of pregnancy
CPT/HCPCS: 59025; 76815; 76819; 81001

== ENCOUNTER 2022-03-02 09:37 | Emergency (ER) | payer MEDICAID, OTHER ==
--- NOTE | 2022-03-02 10:21 | Emergency Department Report ---
ED Female HPI - General Stated complaint: NAUSEA,LIGHT HEADED,STOMACH PAIN Time Seen by Provider: 03/02/22 10:20 Source: patient Mode of arrival: Ambulatory Limitations: No Limitations - History of Present Illness Initial comments: 26 YO COMES TO ER WITH CONCERN SHE IS . REPORTS NAUSEA NO VAG BLEEDING NO VAG D/C NO PAIN NO FEVER NO DYSURIA HAS NOT SEEN OBGYN LMP FIRST WEEK JANUARY -: Gradual - Related Data Previous Rx's Medication Instructions Recorded Last Taken Type Cyclobenzaprine [Flexeril 10 MG 10 mg PO TID #15 tablet 01/22/18 Unknown Rx TAB] Naproxen [Naprosyn] 500 mg PO BID #20 tablet 08/05/19 Unknown Rx traMADoL [Ultram 50 MG tab] 50 mg PO Q6HR PRN #20 tablet 08/05/19 Unknown Rx Acetaminophen [Tylenol] 500 mg PO Q6HR PRN #30 tablet 04/17/20 Unknown Rx Promethazine [Phenergan] 25 mg PO Q6HR PRN #30 tab 04/17/20 Unknown Rx cephALEXin [Keflex] 500 mg PO Q8HR #30 cap 04/17/20 Unknown Rx Ibuprofen [Motrin] 600 mg PO Q8H PRN #60 tablet 05/22/21 Unknown Rx oxyCODONE /ACETAMINOPHEN [Percocet 1 tab PO Q6HR PRN #20 tablet 05/22/21 Unknown Rx 5/325] Ondansetron [Zofran Odt] 4 mg PO Q8HR PRN #10 tab.rapdis 03/02/22 Unknown Rx Allergies Allergy/AdvReac Type Severity Reaction Status Date / Time No Known Allergies Allergy Verified 03/02/22 10:23 ED Review of Systems ROS: Stated complaint: NAUSEA,LIGHT HEADED,STOMACH PAIN Other details as noted in HPI Comment: All other systems reviewed and negative ED Past Medical Hx - Past Medical History Previous Medical History?: No Hx Hypertension: No Hx Congestive Heart Failure: No Hx Diabetes: No Hx Deep Vein Thrombosis: No Hx Renal Disease: No Hx Sickle Cell Disease: No Hx Seizures: No Hx Asthma: No Hx COPD: No Hx HIV: No - Surgical History Past Surgical History?: Yes Additional Surgical History: x 1 - Family History Family history: no significant - Social History Smoking Status: Never Smoker Substance Use Type: None - Medications Home Medications: Home Medications Medication Instructions Recorded Confirmed Last Taken Type Cyclobenzaprine [Flexeril 10 MG 10 mg PO TID #15 tablet 01/22/18 05/25/21 Unknown Rx TAB] Naproxen [Naprosyn] 500 mg PO BID #20 tablet 08/05/19 05/25/21 Unknown Rx traMADoL [Ultram 50 MG tab] 50 mg PO Q6HR PRN #20 tablet 08/05/19 05/25/21 Unknown Rx Acetaminophen [Tylenol] 500 mg PO Q6HR PRN #30 tablet 04/17/20 05/25/21 Unknown Rx Promethazine [Phenergan] 25 mg PO Q6HR PRN #30 tab 04/17/20 05/25/21 Unknown Rx cephALEXin [Keflex] 500 mg PO Q8HR #30 cap 04/17/20 05/25/21 Unknown Rx Ibuprofen [Motrin] 600 mg PO Q8H PRN #60 tablet 05/22/21 Unknown Rx oxyCODONE /ACETAMINOPHEN [Percocet 1 tab PO Q6HR PRN #20 tablet 05/22/21 Unknown Rx 5/325] Ondansetron [Zofran Odt] 4 mg PO Q8HR PRN #10 tab.rapdis 03/02/22 Unknown Rx ED Physical Exam - General Limitations: No Limitations General appearance: alert, in no apparent distress - Head Head exam: Present: atraumatic, normocephalic - Eye Eye exam: Present: normal appearance - ENT ENT exam: Present: mucous membranes moist - Neck Neck exam: Present: normal inspection - Respiratory Respiratory exam: Present: normal lung sounds bilaterally. Absent: respiratory distress - Cardiovascular Cardiovascular Exam: Present: regular rate, normal rhythm. Absent: systolic murmur, diastolic murmur, rubs, gallop - GI/Abdominal GI/Abdominal exam: Present: soft, normal bowel sounds - Extremities Exam Extremities exam: Present: normal inspection - Back Exam Back exam: Present: normal inspection - Neurological Exam Neurological exam: Present: alert, oriented X3 - Psychiatric Psychiatric exam: Present: normal affect, normal mood - Skin Skin exam: Present: warm, dry, intact, normal color. 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 ED Disposition Clinical Impression: , Nausea Disposition: 01 HOME / SELF CARE / HOMELESS Is pt being admited?: No Does the pt Need Aspirin: No Condition: Stable Instructions: First Trimester of Additional Instructions: FOLLOW UP WITH OBGYN SALTY REFERRAL BELOW ZOFRAN FOR NAUSEA STAY WELL HYDRATED TYLENOL FOR PAIN OVER THE COUNTER VITAMIN Prescriptions: Ondansetron [Zofran Odt] 4 mg PO Q8HR PRN #10 tab.rapdis PRN Reason: Vomiting Referrals: PRIMARY CARE, [Primary Care Provider] - 3-5 Days LINA OWEN MD [Staff Physician] - 3-5 Days Time of Disposition: 12:31
[2022-03-02] MEDS ORDERED: ONDANSETRON 4 MG ODT TAB PO ONE (10:22)
[2022-03-02] MEDS ORDERED: ACETAMINOPHEN 500 MG TAB PO ONE (10:22)
[2022-03-02 10:23] VITALS: BP 117/67
[2022-03-02 12:16] LABS: HCG Qualitative,Urine Positive (Negative)
[2022-03-02 12:18] LABS: Color,Urine Yellow (Yellow)
[2022-03-02 12:19] LABS: Bilirubin,Urine Negative (Negative); Blood,Urine Large (Negative); PH,Urine 6.5 (5.0-7.0)
[2022-03-02 12:20] LABS: Urobilinogen,Urine 0.2 mg/dL (<2.0)
== END 2022-03-02 13:29 | disposition home or self-care (01) ==
LOC: ED 09:37
DX: O26.891 Other specified pregnancy related conditions, first trimester (principal); R11.0 Nausea; R10.9 Unspecified abdominal pain; R42 Dizziness and giddiness; Z98.890 Other specified postprocedural states; Z3A.01 Less than 8 weeks gestation of pregnancy
CPT/HCPCS: 81001; 81025; 99283; J3490; Q0162